=== PATIENT | male | born 1985 | race American Indian/Alaskan Native ===

== ENCOUNTER 2021-09-12 12:40 | Emergency (ER) | payer OTHER ==
[~2021-09-12] VITALS: Ht 172.7 cm; Wt 59.6 kg
[2021-09-12 13:00] VITALS: BP 124/71
--- NOTE | 2021-09-12 13:02 | NUR ---
PT SENT TO LOBBY TO WAIT
[2021-09-12] MEDS ORDERED: ERYT2GEL22 TP (13:35)
--- NOTE | 2021-09-12 13:43 | NUR ---
Patient discharged with v/s stable. Written and verbal after care instructions given and explained. Patient alert, oriented and verbalized understanding of instructions. Ambulatory with steady gait. All questions addressed prior to discharge. ID band removed. Patient advised to follow up with PMD. Rx of Erythromycin 2% Gel given. Patient educated on indication of medication including possible reaction and side effects. Opportunity to ask questions provided and answered.
== END 2021-09-12 13:43 | disposition home or self-care (01) ==
LOC: MED 12:40
DX: H01.003 Unspecified blepharitis right eye, unspecified eyelid (principal); Z79.899 Other long term (current) drug therapy
CPT/HCPCS: 99283